=== PATIENT | female | born 1975 | race Two or more races ===

== ENCOUNTER 2017-04-16 10:52 | Observation (INO) | payer OTHER ==
[~2017-04-16] VITALS: Ht 152.4 cm; Wt 76.7 kg
[~2017-04-16 10:52] MED LIST: ALPR0.5T6 PO; MISO200T4 PO; PARO20TA99 PO
--- NOTE | 2017-04-16 12:11 | EKG ---
[facility] [address] [place] [id number] Test Date: 2017-04-16 Test Time: 10:59:07 Pat Name: LATANYA MELVIN Department: Room: Gender: F Art Gilder: : 1975 Requested By: MARILYN MENJIVAR Order Number: [id number] Reading MD: Maverick Perea Measurements Intervals Crawford Rate: 120 P: -116 AK: 110 QRS: 0 QRSD: 104 T: 16 QT: 324 QTc: 463 Interpretive Statements SINUS TACHYCARDIA RBBB Electronically Signed On 04-17-2017 16:02:40 CDT by Maverick Perea
[2017-04-16 12:23] LABS: BASO % 0 % (0-3); EOS % 1 % (0-3); HEMATOCRIT 40.9 % (36.0-47.0); HEMOGLOBIN 14.2 g/dL (12.0-15.5); LYMPH # 1.3 x10^3/uL (1.0-4.8); LYMPH % 18 % (24-48); MEAN CORPUSCULAR HEMOGLOBIN 30 pg (25-35); MEAN CORPUSCULAR HGB CONC 35 g/dL (31-37); MEAN CORPUSCULAR VOLUME 86 fL (79-100); MONO % 4 % (0-9); NEUT % 77 % (31-73); PLATELET COUNT 296 x10^3/uL (140-400); RED BLOOD COUNT 4.75 x10^6/uL (3.50-5.40); RED CELL DISTRIBUTION WIDTH 12.6 % (11.5-14.5); WHITE BLOOD COUNT 7.3 x10^3/uL (4.0-11.0)
[2017-04-16 12:30] LABS: CALCIUM 9.2 mg/dL (8.5-10.1); CREATININE 0.6 mg/dL (0.6-1.0); GFR 110.7; POTASSIUM 3.3 mmol/L (3.5-5.1)
[2017-04-16 12:32] LABS: NEG OBC SER NEG; POS OBC SER POS
[2017-04-16 12:35] LABS: ALBUMIN 4.2 g/dL (3.4-5.0)
[2017-04-16 12:53] LABS: ALBUMIN/GLOBULIN RATIO 1.1 (1.0-1.7); TOTAL BILIRUBIN 0.5 mg/dL (0.2-1.0)
--- NOTE | 2017-04-16 13:03 | RAD ---
AP portable chest radiograph April 16, 2017 Clinical History: Chest pain. An AP portable erect digital radiograph of the chest was obtained. Comparison study is dated 08/07/2010. The cardiac and mediastinal silhouettes are within normal limits in size and configuration. No acute pulmonary infiltrate is seen. No pleural effusion or pneumothorax is noted. Mild degenerative changes are seen involving the thoracic spine. Impression: No acute abnormality is seen.
--- NOTE | 2017-04-16 13:31 | PHYS DOC ---
Past Medical History Past Medical History: Anxiety Past Surgical History: No Surgical History Alcohol Use: None Drug Use: None Adult General Chief Complaint Chief Complaint: CHEST PAIN HPI HPI Patient is a 41 year old non-Kyrgyz speaking female who presents with chest pressure starting last night. Chest pressure is continuous and is rated as moderate. It is not worse with exertion her improved with rest or position change. Associated symptoms include anxiety and nausea and tingling in fingertips. Reports of history of anxiety, but denies previous history of chest pain. Denies fever, chills, vomiting, sweats, cough, sore throat, wheezing or history of asthma or pulmonary disease. Denies abdominal pain, tenderness, flank pain, urinary frequency and urgency. Denies leg pain or swelling. No history of DVT or PE. No other acute symptoms or complaints. Review of Systems Review of Systems Review symptoms as per history of present illness. All other review symptoms are negative. Current Medications Current Medications Current Medications Medications (Trade) Dose Ordered Sig/Edson Start Time Stop Time Status Last Admin Dose Admin Enoxaparin Sodium (Lovenox 120mg Syringe) 120 mg 1X ONCE 04/16/17 15:15 04/16/17 15:15 DC Iohexol (Omnipaque 350 Mg/ml) 100 ml 1X ONCE 04/16/17 13:45 04/16/17 13:46 DC 04/16/17 13:51 100 ML Lorazepam (Ativan) 0.5 mg 1X ONCE 04/16/17 12:45 04/16/17 12:46 DC 04/16/17 12:37 0.5 MG Morphine Sulfate 2 mg PRN Q2HR PRN 04/16/17 15:15 04/16/17 15:15 DC Ondansetron HCl (Zofran) 4 mg PRN Q8HRS PRN 04/16/17 15:15 04/16/17 15:15 DC Sodium Chloride 1,000 ml @ 125 mls/hr Q8H 04/16/17 15:08 04/16/17 15:12 DC Allergies Allergies Allergies Coded Allergies Type Severity Reaction Last Updated Verified No Known Drug Allergies 02/17/14 No Physical Exam Physical Exam Constitutional: Well developed, well nourished, just, moderate discomfort secondary to. [] HENT: Normocephalic, atraumatic, bilateral external ears normal, oropharynx moist, no oral exudates, nose normal. [] Eyes: PERRLA, EOMI, conjunctiva normal, no discharge. [] Neck: Normal range of motion, no tenderness, supple, no stridor. [] Cardiovascular:Heart rate regular rhythm, no murmur. Negative Homans signs. [] Lungs & Thorax: TACHYPNEA, lungs sounds clear. No conversational dyspnea. [] Abdomen: Bowel sounds normal, soft, no tenderness, no masses, no pulsatile masses. [] Skin: Warm, dry, no erythema, no rash. [] Back: No tenderness, no CVA tenderness. [] Extremities: No tenderness, no cyanosis, no clubbing, ROM intact, no edema. [] Neurologic: Alert and oriented X 3, normal motor function, normal sensory function, no focal deficits noted. [] Psychologic: Affect, anxious. [] Current Patient Data Vital Signs Vital Signs Date Time Temp Pulse Resp B/P (MAP) Pulse Ox O2 Delivery O2 Flow Rate FiO2 04/16/17 14:45 113 18 122/76 (91) 97 Room Air 04/16/17 11:01 97.9 97.9 Lab Values Laboratory Tests Test 04/16/17 12:15 White Blood Count 7.3 x10^3/uL (4.0-11.0) Red Blood Count 4.75 x10^6/uL (3.50-5.40) Hemoglobin 14.2 g/dL (12.0-15.5) Hematocrit 40.9 % (36.0-47.0) Mean Corpuscular Volume 86 fL (79-100) Mean Corpuscular Hemoglobin 30 pg (25-35) Mean Corpuscular Hemoglobin Concent 35 g/dL (31-37) Red Cell Distribution Width 12.6 % (11.5-14.5) Platelet Count 296 x10^3/uL (140-400) Neutrophils (%) (Auto) 77 % (31-73) H Lymphocytes (%) (Auto) 18 % (24-48) L Monocytes (%) (Auto) 4 % (0-9) Eosinophils (%) (Auto) 1 % (0-3) Basophils (%) (Auto) 0 % (0-3) Neutrophils # (Auto) 5.6 x10^3uL (1.8-7.7) Lymphocytes # (Auto) 1.3 x10^3/uL (1.0-4.8) Monocytes # (Auto) 0.3 x10^3/uL (0.0-1.1) Eosinophils # (Auto) 0.1 x10^3/uL (0.0-0.7) Basophils # (Auto) 0.0 x10^3/uL (0.0-0.2) D-Dimer (Rachele) 16.55 ug/mlFEU (0.00-0.50) H Sodium Level 142 mmol/L (136-145) Potassium Level 3.3 mmol/L (3.5-5.1) L Chloride Level 104 mmol/L (98-107) Carbon Dioxide Level 27 mmol/L (21-32) Anion Gap 11 (6-14) Blood Urea Nitrogen 14 mg/dL (7-20) Creatinine 0.6 mg/dL (0.6-1.0) Estimated GFR (Cockcroft-Gault) 110.7 BUN/Creatinine Ratio 23 (6-20) H Glucose Level 152 mg/dL (70-99) H Calcium Level 9.2 mg/dL (8.5-10.1) Total Bilirubin 0.5 mg/dL (0.2-1.0) Aspartate Amino Transferase (AST) 18 U/L (15-37) Alanine Aminotransferase (ALT) 30 U/L (14-59) Alkaline Phosphatase 91 U/L (46-116) Troponin I Quantitative < 0.017 ng/mL (0.000-0.055) Total Protein 8.0 g/dL (6.4-8.2) Albumin 4.2 g/dL (3.4-5.0) Albumin/Globulin Ratio 1.1 (1.0-1.7) Thyroid Stimulating Hormone (TSH) 0.867 uIU/mL (0.358-3.74) Serum Test, Qualitative Negative (NEG) Laboratory Tests 04/16/17 12:15 Laboratory Tests 04/16/17 12:15 EKG EKG [EKG: Sinus tach, no acute ST-T wave changes, QTC 463.] Radiology/Procedures Radiology/Procedures [Chest x-ray: No acute cardiopulmonary disease per radiology report CTA chest: No acute findings per radiology report] Course & Med Decision Making Course & Med Decision Making Pertinent Labs and Imaging studies reviewed. (See chart for details) Chest pain, nausea with tachycardia on the EKG and arrhythmia. D-dimer is positive, concerning for possible PE. CTA negative. Imaging results with Dr. Jennings the radiologist. Given the high index of suspicion lack of alternative explanation a secondary study will be performed to rule out PE.. VQ ordered and pending. Patient given empiric dose of Lovenox pending study results. Case reviewed in detail with Dr. Banegas the admitting physician. Courtesy bridge orders written. Patient denies chest pain and has stable blood pressure at time of admission.] Dragon Disclaimer Dragon Disclaimer This electronic medical record was generated, in whole or in part, using a voice recognition dictation system. Departure Departure Impression: Primary Impression: Chest pain Disposition: ADMITTED INPATIENT Admitting Physician: Fern Banegas Condition: STABLE Referrals: NO PCP (PCP) MARILYN MENJIVAR DO Apr 16, 2017 13:31
[2017-04-16] MEDS ORDERED: IOHEXOL 350 MG/ML 100 ML VIAL. IV ONE (13:45)
--- NOTE | 2017-04-16 14:21 | RAD ---
CTA of the chest with contrast (pulmonary embolism protocol) 04/16/2017 Clinical History: Chest pain.. Technique: After the intravenous administration of 75 mL of Isovue-370, contiguous, 2 mm axial sections were obtained through the chest. 3-D MIP coronal reconstructed images were obtained. One or more of the following individualized dose reduction techniques were utilized for this study: 1. Automated exposure control. 2. Adjustment of the mA and/or kV according to patient size. 3. Use of iterative reconstruction technique. Findings: Comparison is made to a portable chest radiograph dated earlier today. No filling defects are seen within the major branches of either pulmonary artery. The heart and thoracic aorta are within normal limits. Minimal dependent subsegmental atelectasis is seen involving both lungs. No area of consolidation, pneumothorax or pleural effusion is noted. Images through the upper abdomen demonstrate decreased attenuation of the liver parenchyma consistent with mild fatty infiltration. Impression: There is no CT evidence of pulmonary embolism.
[2017-04-16] MEDS ORDERED: IV NORMAL SALINE 1000ML BAG 1,000 ML IV SCH (15:08)
[2017-04-16] MEDS ORDERED: ONDANSETRON PF 4 MG/2 ML VIAL. IV PRN ×2 (15:15→15:30)
[2017-04-16] MEDS ORDERED: MORPHINE SULFATE 2 MG/ML DISP.SYRIN. IV PRN (15:15)
[2017-04-16] MEDS ORDERED: MORPHINE SULFATE 4 MG/ML DISP.SYRIN. IV PRN (15:30)
[2017-04-16 15:50] VITALS: BP 117/77
[2017-04-16] MEDS: IV NORMAL SALINE 1000ML BAG 1,000 ML IV SCH ×2 (16:00→23:15)
[2017-04-16] MEDS ORDERED: RANI150C PO (16:15)
[2017-04-16] MEDS ORDERED: HYDR25TA PO (16:15)
--- NOTE | 2017-04-16 17:48 | RAD ---
Ventilation/perfusion lung scan 04/16/2017. Reason for exam: Chest pain. Elevated d-dimer. Ventilation images were obtained after inhalation of 13 mCi xenon-133 gas. Perfusion images were acquired after IV injection of 5.0 mCi technetium 99m MAA. Correlation is made with a chest radiograph of the same day. Ventilation images show homogeneous distribution of radiotracer to the lungs without significant retention. Perfusion images show minimal inhomogeneity in the distribution of radiotracer without evidence of a peripheral unmatched defect. IMPRESSION: This study is felt indicate a low probability of pulmonary embolism. Electronically signed by: Ruy Moss Jr., MD (04/16/2017 5:45 PM) [facility]
[2017-04-16] MEDS: LORazepam 1 MG TABLET PO PRN (18:35)
[2017-04-16 19:59] VITALS: BP 102/64
--- NOTE | 2017-04-16 21:34 | HP ---
ADMIT DATE: 04/16/2017 CHIEF COMPLAINT: Chest pain. HISTORY OF PRESENT ILLNESS: The patient is a pleasant middle-aged female who had chest pain. She presented to the ER, we did a CAT scan, there was no PE, but her D-dimer is high at 16. When I checked her V/Q scan, it was apparently negative as well. I am not sure where this D-dimer elevations come from, perhaps she might have a clot in her legs. I called Dr. Jain for a second opinion. He is going to see the patient. We are going to go ahead and get a lower extremity Doppler to see if there is any clot there. PAST MEDICAL HISTORY: Anxiety, depression, hypertension and GERD. ALLERGIES: None. FAMILY HISTORY: She denies any clots in the family. SOCIAL HISTORY: She does not drink, smoke or take drugs. MEDICATIONS: Reviewed, please refer to the MRAD. REVIEW OF SYSTEMS: GENERAL: No history of weight change, weakness or fevers. SKIN: No bruising, hair changes or rashes. EYES: No blurred, double or loss of vision. NOSE AND THROAT: No history of nosebleeds, hoarseness or sore throat. HEART: Chest pain ____ resolved now. LUNGS: Denies cough, hemoptysis, wheezing or shortness of breath. GASTROINTESTINAL: Denies changes in appetite, nausea, vomiting, diarrhea or constipation. GENITOURINARY: No history of frequency, urgency, hesitancy or nocturia. NEUROLOGIC: Denies history of numbness, tingling, tremor or weakness. PSYCHIATRIC: She complains of anxiety. ENDOCRINE: No history of heat or cold intolerance, polyuria or polydipsia. EXTREMITIES: Denies muscle weakness, joint pain, pain on walking or stiffness. PHYSICAL EXAMINATION: VITAL SIGNS: Temperature afebrile, pulse 92, respirations 18, blood pressure 122/76, O2 sat 97% on room air. GENERAL: She is alert, cooperative. Her family is present. HEART: Normal S1, S2, tachycardic at times. LUNGS: Clear. ABDOMEN: Soft. EXTREMITIES: No edema. Homans sign is negative. ENDOCRINE: No thyromegaly. LYMPHATICS: No cervical nodes. HEMATOPOIETIC: No bruising. LABORATORY DATA: CT of the chest negative. Chest x-ray negative. V/Q scan, low probably of pulmonary embolism. White count 7, hemoglobin 14, platelets 296. Electrolytes normal. Potassium of 3.3 and glucose of 152. Troponin is 0. D-dimer is 16.55. ASSESSMENT AND PLAN: Chest pain with an elevated D-dimer. We are concerned that it could be a clot hiding somewhere. We are imaging her legs with ultrasound at this time, we have already checked the CAT scan of the chest and a V/Q scan but they are so far negative. We will consult Dr. Jain for a second opinion. Lovenox 1 mg/kg subcutaneous q.12 until we assure she does not have a clot hiding anywhere. Resume home medicines. PROGNOSIS: Guarded. ANNETTE JASSO DO DR: KALEE/derba JOB#: [id number] / [id number]
--- NOTE | 2017-04-16 22:30 | RAD ---
EXAM: Bilateral lower extremity venous Doppler sonogram. HISTORY: Elevated d-dimer. TECHNIQUE: Ko scale and color Doppler sonographic evaluation of the bilateral lower extremity veins with spectral waveform analysis was performed. FINDINGS: There is normal color flow, normal compressibility and there are normal spectral waveforms in the bilateral lower extremity veins. IMPRESSION: No Doppler evidence of lower extremity venous thrombosis. Electronically signed by: Luisa Vicente MD (04/16/2017 10:27 PM) [facility]
[2017-04-16 23:25] VITALS: BP 107/65
[2017-04-17 03:33] VITALS: BP 108/76
--- NOTE | 2017-04-17 05:01 | ACF ---
Admission Forms Criteria TELEMETRY CARE Telemetry Admission Guidelines (Place 'X' for any and all applicable criteria): Admission to telemetry [A] may be indicated for ANY ONE of the following(1)(2)(3 )(4)(5): [ X]I. Cardiac disease, including ANY ONE of the following (9)(10)(11)(12)( 13): [ ]a) Postacute AR [ ]b) Low-risk patients with ST-segment elevation AR who have undergone successful percutaneous coronary intervention [ ]c) Unstable angina [ ]d) Suspected AR (until it is ruled out) [ ]e) Post cardiac surgery (first 48 to 72 hours unless complications occur) [ X]f) Acute arrhythmias (including significant tachycardia or bradycardia) [B] [ ]g) Firing of an implantable cardioverter defibrillator [C] [ ]h) Suspected pacemaker or implantable cardioverter defibrillator malfunction (10) [ ]i) New administration or adjustment of an antiarrhythmic drug [D ] [ ]j) Child admitted for acute congestive heart failure [ ]j) Long QT syndrome [ ]k) Advanced heart block (eg, second-degree Mobitz type II, third- degree heart block) [ ]l) Acute myocarditis or pericarditis [ ]m) Short-term (ambulatory or inpatient) monitoring after a cardiac procedure as indicated by ANY ONE of the following [E]: [ ]i) Electrophysiologic studies [ ]ii) Percutaneous coronary intervention with stent placement [ ]iii) Pacemaker placement with cardiac conduction defect [ ]iv) Implantable cardiac defibrillator placement [ ]II. Drug overdose or poisoning with substance that causes arrhythmias or QT prolongation (eg, phenothiazines, sympathomimetic agents, cyclic antidepressants, digitalis, antiarrhythmic drugs)(15) [ ]III. Short-term (ambulatory or inpatient) monitoring after therapeutic or diagnostic procedure requiring conscious sedation or anesthesia (eg, endoscopy, elective cardioversion) [ ]IV. Acute cerebrovascular even[F](18) [ ]V. Massive blood transfusion (eg, at least 10 units of packed red blood cells in 24 hours) [ ]. Variceal bleeding after endoscopy, sclerotherapy, or IV vasopressin [ ]VII. Uncorrected electrolyte abnormalities associated with an increased risk of dangerous arrhythmia [G]; examples include [ ]a) Hyperkalemia with attributable ECG changes [ ]b) Potassium greater than 6.5 mmol/L (mEq/L) in a patient without history of chronic renal disease [ ]c) Prolonged QT attributed to hypokalemia, hypomagnesemia, or hypocalcemia [ ]VIII.Unexplained syncope or other neurologic event suspected of being due to arrhythmia due to a finding that increases risk; examples include(19)(20)(21): [ ]a) High-risk ECG findings (eg, bifascicular block, bradycardia, abnormal QT interval, ventricular pre- excitation) [ ]b) History of previous syncope due to arrhythmia [ ]c) Abnormal ventricular function (eg, reduced ejection fraction ) [ ]d) Exertional or supine syncope [ ]e) Concerning syncope characteristics (eg, sudden loss of consciousness without prodrome) [ ]f) Family history of sudden [ ]g) Use of arrhythmogenic medication [ ]h) Suspected cardiac ischemia [ ]i) Known channelopathy (eg, long QT syndrome, Brugada syndrome, or catecholaminergic paroxysmal ventricular tachycardia) [ ]j) Known structural heart disease (eg, hypertrophic cardiomyopathy , severe valvular disease) [ ]k) Palpitations preceding syncope The original [email or web address] content created by [email or web address] has been revised. The portions of the content which have been revised are identified through the use of italic text or in bold, and [facility] has neither reviewed nor approved the modified material. All other unmodified content is copyright [email or web address]. Please see references footnoted in the original [email or web address] edition 2016 Admission Criteria Met?: Yes GINNY LE Apr 17, 2017 05:01
[2017-04-17 07:51] VITALS: BP 122/80
[2017-04-17] MEDS: IV NORMAL SALINE 1000ML BAG 1,000 ML IV SCH (08:45)
[2017-04-17] MEDS: LORazepam 1 MG TABLET PO PRN (08:46)
[2017-04-17] MEDS ORDERED: ENOXAPARIN 40 MG/0.4 ML SYRINGE. SQ SCH (09:00)
[2017-04-17] MEDS ORDERED: hydrOXYzine PAMOATE 25 MG CAPSULE PO PRN (09:45)
[2017-04-17] MEDS ORDERED: ACETAMINOPHEN 500 MG TABLET PO PRN (09:45)
[2017-04-17] MEDS ORDERED: ALPRAZolam 0.5 MG TABLET PO PRN (09:45)
[2017-04-17] MEDS ORDERED: FAMOTIDINE 20 MG TABLET. PO SCH (10:00)
--- NOTE | 2017-04-17 11:04 | PDOC ---
Provider Note Provider Note Hem-Onc consult: 1. Elevated d-dimer. No DVT/PE This is a false positive result. No further w/u needed. See dictation [id number] NARA GRAHAM MD Apr 17, 2017 11:04
[2017-04-17 11:21] VITALS: BP 123/77
[2017-04-17 14:42] VITALS: BP 121/82
--- NOTE | 2017-04-17 14:54 | PDOC ---
PROGRESS NOTES Chief Complaint Chief Complaint 1. CP, atypical adult 2., ELevated D dimer, neg PE neg DVT History of Present Illness History of Present Illness Hx obtained via blue phone D dimer rpt is 10 (from 16) Able to tell me CP woke her up from sleep, 9./10. 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, assessed to possibly have false positive d dimer I am concerned discharging without cardiac eval given CP and marked d dimer NOt She is agreeable to stay NO home meds, NKDA, no vices, fam hx HTN, dyslipidemia etc in family PLAn; get cards Cycel ce, get CKMB Dw family signif time with language barrier Vitals Vitals Vital Signs Date Time Temp Pulse Resp B/P (MAP) Pulse Ox O2 Delivery O2 Flow Rate FiO2 04/17/17 11:21 98.3 105 16 123/77 (92) 96 Room Air 98.3 04/16/17 23:25 2.0 Physical Exam General: Alert, Oriented X3, Cooperative, No acute distress Heart: Regular rate, Normal S1, Normal S2, No murmurs Lungs: Clear Abdomen: Normal bowel sounds, No tenderness Extremities: No clubbing, No cyanosis, No edema Skin: No rashes, No breakdown, No significant lesion Labs LABS Laboratory Tests Test 04/17/17 09:55 D-Dimer (Rachele) 10.63 ug/mlFEU (0.00-0.50) Review of Systems Review of Systems cp, all else is neg Comment Review of Relevant I have reviewed the following items renetta (where applicable) has been applied. Labs Laboratory Tests Test 04/16/17 12:15 04/17/17 09:55 White Blood Count 7.3 x10^3/uL (4.0-11.0) Red Blood Count 4.75 x10^6/uL (3.50-5.40) Hemoglobin 14.2 g/dL (12.0-15.5) Hematocrit 40.9 % (36.0-47.0) Mean Corpuscular Volume 86 fL (79-100) Mean Corpuscular Hemoglobin 30 pg (25-35) Mean Corpuscular Hemoglobin Concent 35 g/dL (31-37) Red Cell Distribution Width 12.6 % (11.5-14.5) Platelet Count 296 x10^3/uL (140-400) Neutrophils (%) (Auto) 77 % (31-73) Lymphocytes (%) (Auto) 18 % (24-48) Monocytes (%) (Auto) 4 % (0-9) Eosinophils (%) (Auto) 1 % (0-3) Basophils (%) (Auto) 0 % (0-3) Neutrophils # (Auto) 5.6 x10^3uL (1.8-7.7) Lymphocytes # (Auto) 1.3 x10^3/uL (1.0-4.8) Monocytes # (Auto) 0.3 x10^3/uL (0.0-1.1) Eosinophils # (Auto) 0.1 x10^3/uL (0.0-0.7) Basophils # (Auto) 0.0 x10^3/uL (0.0-0.2) D-Dimer (Rachele) 16.55 ug/mlFEU (0.00-0.50) 10.63 ug/mlFEU (0.00-0.50) Sodium Level 142 mmol/L (136-145) Potassium Level 3.3 mmol/L (3.5-5.1) Chloride Level 104 mmol/L (98-107) Carbon Dioxide Level 27 mmol/L (21-32) Anion Gap 11 (6-14) Blood Urea Nitrogen 14 mg/dL (7-20) Creatinine 0.6 mg/dL (0.6-1.0) Estimated GFR (Cockcroft-Gault) 110.7 BUN/Creatinine Ratio 23 (6-20) Glucose Level 152 mg/dL (70-99) Calcium Level 9.2 mg/dL (8.5-10.1) Total Bilirubin 0.5 mg/dL (0.2-1.0) Aspartate Amino Transf (AST/SGOT) 18 U/L (15-37) Alanine Aminotransferase (ALT/SGPT) 30 U/L (14-59) Alkaline Phosphatase 91 U/L (46-116) Troponin I Quantitative < 0.017 ng/mL (0.000-0.055) Total Protein 8.0 g/dL (6.4-8.2) Albumin 4.2 g/dL (3.4-5.0) Albumin/Globulin Ratio 1.1 (1.0-1.7) Thyroid Stimulating Hormone (TSH) 0.867 uIU/mL (0.358-3.74) Serum Test, Qualitative Negative (NEG) Laboratory Tests Test 04/17/17 09:55 D-Dimer (Rachele) 10.63 ug/mlFEU (0.00-0.50) Medications Current Medications Lorazepam (Ativan) 0.5 mg 1X ONCE IV Last administered on 04/16/17 12:37; Start 04/16/17 at 12:45; Stop 04/16/17 at 12:46; Status DC Iohexol (Omnipaque 350 Mg/ml) 100 ml 1X ONCE IV Last administered on 13:51; Start 04/16/17 at 13:45; Stop 04/16/17 at 13:46; Status DC Enoxaparin Sodium (Lovenox 120mg Syringe) 120 mg 1X ONCE SQ Last administered on 04/16/17 15:59; Start 04/16/17 at 15:15; Stop 04/16/17 at 15:22; Status DC Ondansetron HCl (Zofran) 4 mg PRN Q8HRS PRN IV NAUSEA/VOMITING; Start 04/16/17 at 15:15; Stop 04/16/17 at 15:15; Status DC Morphine Sulfate 2 mg PRN Q2HR PRN IV PAIN; Start 04/16/17 at 15:15; Stop 04/16 at 15:15; Status DC Sodium Chloride 1,000 ml @ 125 mls/hr Q8H IV ; Start 04/16/17 at 15:08; Stop at 15:12; Status DC Ondansetron HCl (Zofran) 4 mg PRN Q8HRS PRN IV NAUSEA/VOMITING; Start 04/16/17 at 15:30; Stop 04/17/17 at 15:14 Morphine Sulfate 2 mg PRN Q2HR PRN IV PAIN Last administered on 04/16/17 15:55 ; Start 04/16/17 at 15:30; Stop 04/17/17 at 15:14 Sodium Chloride 1,000 ml @ 125 mls/hr Q8H IV Last administered on 04/17/17 08 :45; Start 04/16/17 at 15:15; Stop 04/17/17 at 15:07 Enoxaparin Sodium (Lovenox 40mg Syringe) 40 mg Q24H SQ ; Start 04/17/17 at 09:00 ; Stop 04/17/17 at 09:00; Status DC Lorazepam (Ativan) 1 mg PRN Q6HRS PRN PO ANXIETY / AGITATION Last administered on 04/17/17 08:46; Start 04/16/17 at 18:30 Enoxaparin Sodium (Lovenox Per Pharmacy Prophylaxis Dosing) 1 each BID MC ; Start 04/17/17 at 09:00; Stop 04/17/17 at 09:00; Status DC Enoxaparin Sodium (Lovenox 80mg Syringe) 80 mg Q12HR SQ Last administered on 08:46; Start 04/17/17 at 09:00 Acetaminophen (Tylenol) 500 mg PRN Q6HRS PRN PO MILD PAIN / TEMP; Start at 09:45 Alprazolam (Xanax) 0.5 mg PRN Q8HRS PRN PO ANXIETY / AGITATION; Start 04/17/17 at 09:45 Hydroxyzine Pamoate (Vistaril) 25 mg PRN Q6HRS PRN PO ANXIETY / AGITATION; Start 04/17/17 at 09:45 Famotidine (Pepcid) 20 mg BID PO Last administered on 04/17/17 11:23; Start at 10:00 Active Scripts Active Alprazolam 0.5 Mg Tablet 1 Tab PO Q8HRS PRN Reported Ranitidine Hcl 150 Mg Capsule 1 Cap PO BID Hydroxyzine Hcl 25 Mg Tablet 25 Mg PO QID PRN Vitals/I & O Vital Sign - Last 24 Hours 04/16/17 04/16/17 04/16/17 04/16/17 15:50 15:55 16:25 19:59 Temp 96.4 97.8 96.4 97.8 Pulse 120 99 Resp 18 16 18 16 B/P (MAP) 117/77 (90) 102/64 (77) Pulse Ox 98 97 97 98 O2 Delivery Room Air Nasal Cannula O2 Flow Rate 2.0 04/16/17 04/16/17 04/17/17 04/17/17 20:00 23:25 03:33 07:51 Temp 98.2 98.1 98.6 98.2 98.1 98.6 Pulse 90 84 96 Resp 16 16 16 B/P (MAP) 107/65 (79) 108/76 (87) 122/80 (94) Pulse Ox 98 98 99 O2 Delivery Room Air Nasal Cannula Room Air Room Air O2 Flow Rate 2.0 04/17/17 04/17/17 08:00 11:21 Temp 98.3 98.3 Pulse 105 Resp 16 B/P (MAP) 123/77 (92) Pulse Ox 96 O2 Delivery Room Air Room Air Intake and Output 04/16/17 04/16/17 04/17/17 15:00 23:00 07:00 Intake Total 300 ml 200 ml Balance 300 ml 200 ml JANIYA BURNS MD Apr 17, 2017 14:53
--- NOTE | 2017-04-17 16:44 | PDOC3 ---
Discharge Summary Visit Information Date of Admission: Apr 16, 2017 Date of Discharge: Apr 17, 2017 Final Diagnosis 1. CP, atypical adult 2., ELevated D dimer, neg PE neg DVT Brief Hospital Course Allergies Allergies Coded Allergies Type Severity Reaction Last Updated Verified No Known Drug Allergies 02/17/14 No Vital Signs Vital Signs Date Time Temp Pulse Resp B/P (MAP) Pulse Ox O2 Delivery O2 Flow Rate FiO2 04/17/17 14:42 98.0 93 16 121/82 (95) 98 Room Air 98.0 04/16/17 23:25 2.0 Lab Results Laboratory Tests Test 04/16/17 12:15 04/17/17 09:55 White Blood Count 7.3 x10^3/uL (4.0-11.0) Red Blood Count 4.75 x10^6/uL (3.50-5.40) Hemoglobin 14.2 g/dL (12.0-15.5) Hematocrit 40.9 % (36.0-47.0) Mean Corpuscular Volume 86 fL (79-100) Mean Corpuscular Hemoglobin 30 pg (25-35) Mean Corpuscular Hemoglobin Concent 35 g/dL (31-37) Red Cell Distribution Width 12.6 % (11.5-14.5) Platelet Count 296 x10^3/uL (140-400) Neutrophils (%) (Auto) 77 % (31-73) Lymphocytes (%) (Auto) 18 % (24-48) Monocytes (%) (Auto) 4 % (0-9) Eosinophils (%) (Auto) 1 % (0-3) Basophils (%) (Auto) 0 % (0-3) Neutrophils # (Auto) 5.6 x10^3uL (1.8-7.7) Lymphocytes # (Auto) 1.3 x10^3/uL (1.0-4.8) Monocytes # (Auto) 0.3 x10^3/uL (0.0-1.1) Eosinophils # (Auto) 0.1 x10^3/uL (0.0-0.7) Basophils # (Auto) 0.0 x10^3/uL (0.0-0.2) D-Dimer (Rachele) 16.55 ug/mlFEU (0.00-0.50) 10.63 ug/mlFEU (0.00-0.50) Sodium Level 142 mmol/L (136-145) Potassium Level 3.3 mmol/L (3.5-5.1) Chloride Level 104 mmol/L (98-107) Carbon Dioxide Level 27 mmol/L (21-32) Anion Gap 11 (6-14) Blood Urea Nitrogen 14 mg/dL (7-20) Creatinine 0.6 mg/dL (0.6-1.0) Estimated GFR (Cockcroft-Gault) 110.7 BUN/Creatinine Ratio 23 (6-20) Glucose Level 152 mg/dL (70-99) Calcium Level 9.2 mg/dL (8.5-10.1) Total Bilirubin 0.5 mg/dL (0.2-1.0) Aspartate Amino Transf (AST/SGOT) 18 U/L (15-37) Alanine Aminotransferase (ALT/SGPT) 30 U/L (14-59) Alkaline Phosphatase 91 U/L (46-116) Troponin I Quantitative < 0.017 ng/mL (0.000-0.055) Total Protein 8.0 g/dL (6.4-8.2) Albumin 4.2 g/dL (3.4-5.0) Albumin/Globulin Ratio 1.1 (1.0-1.7) Thyroid Stimulating Hormone (TSH) 0.867 uIU/mL (0.358-3.74) Serum Test, Qualitative Negative (NEG) Laboratory Tests Test 04/17/17 09:55 D-Dimer (Rachele) 10.63 ug/mlFEU (0.00-0.50) Brief Hospital Course Ms. Canales is a 41 old female admitted for CP and elevated D dimer 16, rpt was 10,. US and CTA and VQ neg for DVT, CARds consulted, CLEar to go home, 2 notes today DispO;home Dw RN Pt seen and examined See my prev note today Discharge Information Condition at Discharge: Improved, Stable Disposition/Orders: D/C to Home Scheduled Ranitidine Hcl (Ranitidine Hcl), 1 CAP PO BID, (Reported) Scheduled PRN Alprazolam (Alprazolam), 1 TAB PO Q8HRS PRN for ANXIETY / AGITATION Hydroxyzine Hcl (Hydroxyzine Hcl), 25 MG PO QID PRN for ANXIETY / AGITATION, ( Reported) Discontinued Medications Misoprostol (Misoprostol), 200 MCG PO, (Reported) JANIYA BURNS MD Apr 17, 2017 16:44
--- NOTE | 2017-04-18 02:13 | CONS ---
DATE OF CONSULTATION: 04/16/2017 HEMATOLOGY/ONCOLOGY CONSULTATION REPORT CONSULTATION REQUESTED BY: Dr. Fern Banegas. REASON FOR CONSULTATION: Elevated D-dimer and chest pain. HISTORY OF PRESENT ILLNESS: The patient is a 41-year-old old female who presented to [facility] on 04/16/2017 with complaints of chest pain that started the night of 04/15/2017. The chest pressure was thought to be continuous and was rated as moderate. It was not worse on exertion. She also had symptoms of anxiety, nausea and tingling. No fevers or chills, no vomiting, no cough, sore throat or wheezing. No abdominal pain, nausea or vomiting. No flank pain, no history of urinary tract infection. No history of DVT or pulmonary embolism. No loss of weight or loss of appetite. No fevers, chills or night sweats. No hematemesis, melena or hematochezia, no hemoptysis or hematuria. No history of easy bruisability. She denies any joint pains or symptoms. No history of rheumatologic or autoimmune disorders. Her D-dimer was noted to be elevated at 16.55 on 04/16/2017. She underwent CT angiogram of the chest on 04/16/2017 that was negative for pulmonary embolism. V/Q scan was performed on 04/16/2017, which also revealed low probability. Venous Doppler of the lower extremities was performed on 04/16/[address] Banegas consulted me for elevated D-dimer. PAST MEDICAL HISTORY: Anxiety. SOCIAL HISTORY: No smoking or alcohol abuse. FAMILY HISTORY: No history of thromboembolic events in the family. REVIEW OF SYSTEMS: A 12-point review of system was performed. Pertinent positives are mentioned in the history of present illness. Rest of the system review is negative. PHYSICAL EXAMINATION: GENERAL APPEARANCE: The patient is a 41-year-old female who is in no acute cardiorespiratory distress. VITAL SIGNS: Blood pressure 122/80, temperature 98.6. HEENT: Atraumatic, normocephalic. Eyes: No icterus. NECK: Supple. CHEST: Bilaterally symmetrical. No crepitations or rhonchi heard. HEART: S1, S2 normal. ABDOMEN: Soft, nontender. CENTRAL NERVOUS SYSTEM: No focal deficits. LYMPHATICS: No lymphadenopathy. SKIN: No rashes. PSYCHOLOGIC: Mood and affect are appropriate. MUSCULOSKELETAL: No joint effusions. PSYCHOLOGIC: Mood and affect are appropriate. LYMPHATICS: No lymphadenopathy. LABORATORY DATA: D-dimer on 04/16/2017 was 16.55 and on 04/17/2017, it was 10.63. CBC from 04/16/2017 reveals WBC of 7.3, hemoglobin 14, platelet count 296, creatinine 0.6, calcium 9.2, total bilirubin 0.5, AST 18, ALT 30, alkaline phosphatase 91. Serum test is negative. TSH 0.867. IMPRESSION AND PLAN: Elevated D-dimer. Workup for thromboembolic event has been negative. There is no evidence of pulmonary embolism or deep venous thrombosis. CT angiogram of the chest and venous Doppler of the lower extremities and a V/Q scan have all been unremarkable. There are no clinical signs or symptoms to suggest a thromboembolic event. Hence, this is likely a false positive D-dimer. Review of the literature indicates that false positive results can be seen in the following conditions including female sex, in older individuals more than 60 years, black or -[place] race, history of cocaine use, immobility, coronary artery disease, rheumatoid arthritis, systemic lupus erythematosus, hemodialysis, active malignancy, sickle cell disease or trait. Other conditions that can also elevate D-dimer include trauma, preeclampsia, DIC, atrial fibrillation, coronary artery disease, stroke or acute GI bleed. Cigarette smoking, , limited mobility can also elevate D-dimer state including a postoperative state. She does not have any of the above pathologic causes for elevated D-dimer. Hence, this is a likely a false positive result. I have explained in detail to the patient and her . No further workup is needed. She is anxious to go home and I agree to proceed with discharge planning. I have advised her to follow up with her primary care physician. I discussed with Dr. Banegas. Addendum: Agree with cardiac w/u as CAD can also elevate d-dimer. NARA GRAHAM MD DR: NGUYEN/debra JOB#: [id number] / [id number] ASHLEY
--- NOTE | 2017-04-18 13:39 | PDOC ---
Provider Note Provider Note Cardiology consultation note- late entry for 04/17/2017 Reason for consultation: Positive d-dimer 41-year-old woman without any significant past medical history presented to the hospital in the setting of atypical chest pain. She had an elevated d-dimer negative testing. She's been evaluated by hematology and pulmonary. Cardiology was asked to evaluate her for her discomfort in her chest. She describes classic gastroesophageal reflux disease type symptoms. Denies any other orthopnea, PND or lower extremity edema. Does not have any syncope or palpitations. PAST MEDICAL HISTORY: Anxiety. SOCIAL HISTORY: No smoking or alcohol abuse. FAMILY HISTORY: No history of thromboembolic events in the family. REVIEW OF SYSTEMS: A 12-point review of system was performed. Pertinent positives are mentioned in the history of present illness. Rest of the system review is negative. Medications include ranitidine and Xanax. PHYSICAL EXAMINATION: GENERAL APPEARANCE: The patient is a 41-year-old female who is in no acute cardiorespiratory distress. VITAL SIGNS: Blood pressure 122/80, temperature 98.6. HEENT: Atraumatic, normocephalic. Eyes: No icterus. NECK: Supple. CHEST: Bilaterally symmetrical. No crepitations or rhonchi heard. HEART: S1, S2 normal. ABDOMEN: Soft, nontender. CENTRAL NERVOUS SYSTEM: No focal deficits. LYMPHATICS: No lymphadenopathy. SKIN: No rashes. PSYCHOLOGIC: Mood and affect are appropriate. MUSCULOSKELETAL: No joint effusions. PSYCHOLOGIC: Mood and affect are appropriate. LYMPHATICS: No lymphadenopathy. LABORATORY DATA: D-dimer on 04/16/2017 was 16.55 and on 04/17/2017, it was 10.63. CBC from 04/16/2017 reveals WBC of 7.3, hemoglobin 14, platelet count 296, creatinine 0.6, calcium 9.2, total bilirubin 0.5, AST 18, ALT 30, alkaline phosphatase 91. Serum test is negative. TSH 0.867. Impression: 1. Noncardiac chest pain 2. Gastric social reflux disease 3. Anxiety Recommendations: 1. No further cardiac testing at this time. Supportive care. 2. Consider PPI. ENE WORLEY MD Apr 18, 2017 13:39
== END 2017-04-17 18:00 | disposition home or self-care (01) ==
LOC: ER 10:52 → 6 SOUTH 14:45 → ER 15:12
PROVIDERS: ADMIT Internal Medicine; ATTEND Internal Medicine
DX: R07.89 Other chest pain (principal); R79.1 Abnormal coagulation profile; F41.9 Anxiety disorder, unspecified; I25.10 Atherosclerotic heart disease of native coronary artery without angina pectoris; M06.9 Rheumatoid arthritis, unspecified; M32.9 Systemic lupus erythematosus, unspecified; D65 Disseminated intravascular coagulation [defibrination syndrome]; F32.9 Major depressive disorder, single episode, unspecified; I10 Essential (primary) hypertension; K21.9 Gastro-esophageal reflux disease without esophagitis
CPT/HCPCS: 36415; 71010; 71275; 78582; 80053; 84443; 84484; 84703; 85025; 85379; 93005; 93925; 96361; 96372; 96374; 96375; 99285; A9540; A9558; G0378; J1650; J2060; J2270; J7030; Q9967; G0379

== ENCOUNTER → 2019-10-19 | Outpatient (CLI) | payer SELFPAY ==
[~2019-10-19] MED LIST changes: +HYDR25TA PO; +RANI150C PO
--- NOTE | 2019-10-19 16:17 | KCIC ---
CERVICAL SPINE 2-3V History: Neck pain for 3 days Comparison: None. Findings: 4 views of the cervical spine are submitted. Cervical vertebral body stature and AP alignment are maintained. Intervertebral disc spaces are overall maintained. There is adequate alignment of the lateral masses C1 relative to C2. Tip of the dens is obscured on the odontoid view. Prevertebral soft tissue distance is within normal limits. No acute osseous abnormality is identified by radiographs. Impression: 1. No significant abnormality is identified by radiographs. Electronically signed by: Robert Villasenor MD (10/19/2019 4:14 PM) [id number]
== END | disposition home or self-care (01) ==
LOC: KCIC 15:41
PROVIDERS: ATTEND Family Medicine
DX: M53.82 Other specified dorsopathies, cervical region (principal)
CPT/HCPCS: 72040